=== PATIENT | female | born 1995 | race Caucasian/White ===

== ENCOUNTER 2024-02-20 19:44 | Emergency (ER) | payer SELFPAY ==
[~2024-02-20] VITALS: Ht 144.8 cm; Wt 48.0 kg
[2024-02-20 19:57] VITALS: BP 112/66; PULSE 81; RESP 18; TEMP 98.4; O2SAT 98
[2024-02-20] MEDS ORDERED: BACITRACIN ZINC OINT UDPKT TOP NR (20:30)
[2024-02-20] MEDS ORDERED: TETANUS, DIPHTHERIA, PERTUSSIS VAC/PF 0.5ML (>10YR OLD) IM ONE (20:30)
[2024-02-20] MEDS ORDERED: ACETAMINOPHEN WITH CODEINE 300/30MG TABLET PO ONE (20:30)
[2024-02-20] MEDS ORDERED: BACITRACIN ZINC OINT UDPKT TOP ONE (20:30)
[2024-02-20] MEDS ORDERED: BO1 TP (21:23)
[2024-02-20] MEDS ORDERED: IBUP-2029 MT (21:23)
[2024-02-20] MEDS: ACETAMINOPHEN WITH CODEINE 300/30MG TABLET PO NR (23:02)
[2024-02-20] MEDS: TETANUS, DIPHTHERIA, PERTUSSIS VAC/PF 0.5ML (>10YR OLD) IM ONE (23:02)
== END 2024-02-20 23:07 | disposition home or self-care (01) ==
LOC: ER 19:44
DX: S50.12XA Contusion of left forearm, initial encounter (principal); S16.1XXA Strain of muscle, fascia and tendon at neck level, initial encounter; S30.0XXA Contusion of lower back and pelvis, initial encounter; V49.49XA Driver injured in collision with other motor vehicles in traffic accident, initial encounter; Y93.89 Activity, other specified; Y92.89 Other specified places as the place of occurrence of the external cause; Y99.8 Other external cause status
CPT/HCPCS: 73090; 81025; 90471; 90715; 99285